=== PATIENT | female | born 1980 | race Caucasian/White ===

== ENCOUNTER 2017-10-07 16:11 | Emergency (ER) ==
[~2017-10-07] VITALS: Ht 162.6 cm; Wt 138.5 kg
[2017-10-07 16:21] VITALS: BP 134/48; PULSE 97; TEMP 36.8; Ht 162.6 cm; Wt 138.5 kg
[2017-10-07 16:23] VITALS: O2SAT 98
== END 2017-10-07 17:50 | disposition left against medical advice (07) ==
LOC: C.EDB 16:12
DX: T78.40XA Allergy, unspecified, initial encounter (principal); X58.XXXA Exposure to other specified factors, initial encounter